=== PATIENT | male | born 1990 | race Caucasian/White ===

== ENCOUNTER 2016-11-09 13:20 | Emergency (ER) | payer MEDICAID, OTHER ==
[~2016-11-09] VITALS: Ht 177.8 cm; Wt 79.0 kg
[2016-11-09] MEDS ORDERED: IBUPROFEN 800 MG TABLET PO ONE (15:00)
[2016-11-09] MEDS ORDERED: CEPHALEXIN MONOHYDRATE 500 MG CAPSULE PO ONE (15:00)
[2016-11-09] MEDS ORDERED: TraMADol HCL 50 MG TABLET PO ONE (15:00)
[2016-11-09 16:00] VITALS: BP 128/76
== END 2016-11-09 16:49 | disposition home or self-care (01) ==
LOC: EMS 13:21
DX: S62.326A Displaced fracture of shaft of fifth metacarpal bone, right hand, initial encounter for closed fracture (principal); F17.210 Nicotine dependence, cigarettes, uncomplicated; W18.09XA Striking against other object with subsequent fall, initial encounter; Y93.89 Activity, other specified; Y92.89 Other specified places as the place of occurrence of the external cause; Y99.8 Other external cause status
CPT/HCPCS: 99284